=== PATIENT | male | born 1985 | race African-American/Black ===

== ENCOUNTER 2021-09-06 16:53 | Emergency (ER) | payer SELFPAY ==
[~2021-09-06] VITALS: Ht 180.3 cm; Wt 81.8 kg
[2021-09-06 17:10] VITALS: BP 128/75
== END 2021-09-06 17:20 | disposition left against medical advice (07) ==
LOC: EMS 16:56
DX: T40.2X1A Poisoning by other opioids, accidental (unintentional), initial encounter (principal); Y92.89 Other specified places as the place of occurrence of the external cause
CPT/HCPCS: 99283; Z7502